=== PATIENT | female | born 1985 | race Asian ===

== ENCOUNTER → 2023-07-25 | Outpatient (CLI) | payer OTHER ==
[2023-07-25 18:22] LABS: HEMATOCRIT 42.7 % (36.0-47.0); HEMOGLOBIN 14.2 g/dl (12.0-15.5); MEAN CORPUSCULAR HEMOGLOBIN 32.1 pg (27.0-33.0); MEAN CORPUSCULAR HGB CONC 33.3 g/dl (32.0-36.5); MEAN CORPUSCULAR VOLUME 96.4 fl (80.0-96.0); PLATELET COUNT, AUTOMATED 319 10^3/uL (150-450); RED BLOOD COUNT 4.43 10^6/uL (4.00-5.40); WHITE BLOOD COUNT 7.7 10^3/uL (4.0-10.0)
[2023-07-25 18:42] LABS: BLOOD UREA NITROGEN 14 MG/DL (9-23); CALCIUM LEVEL 10.2 MG/DL (8.5-10.1); CARBON DIOXIDE LEVEL 26 MMOL/L (20-31); CHLORIDE LEVEL 103 MMOL/L (98-107); CREATININE FOR GFR 0.78 MG/DL (0.55-1.30); GLOMERULAR FILTRATION RATE > 60.0 (>60); GLUCOSE, FASTING 78 MG/DL (60-100); POTASSIUM SERUM 4.4 MMOL/L (3.5-5.1); SODIUM LEVEL 136 MMOL/L (136-145)
== END ==
LOC: M PLALAB 16:18
PROVIDERS: ATTEND Plastic Surgery Surgery of the Hand
DX: D22.39 Melanocytic nevi of other parts of face (principal)

== ENCOUNTER 2023-08-07 06:05 | Day surgery (SDC) | payer OTHER ==
[~2023-08-07] VITALS: Ht 165.1 cm; Wt 87.4 kg
[~2023-08-07 06:05] MED LIST: LEXA1TAB PO; TIRZ2.5P3
[2023-08-07] MEDS ORDERED: LR 1,000 ML IV SCH (06:35)
[2023-08-07] MEDS: LIDOCAINE 2% MDV 20ML VIAL As Ordered ONE (07:13)
[2023-08-07] MEDS ORDERED: ONDANSETRON 4MG 2ML VIAL As Ordered ONE (07:20)
[2023-08-07] MEDS ORDERED: propofoL 200 MG/20 ML VIAL As Ordered ONE (07:20)
[2023-08-07] MEDS ORDERED: LIDOCAINE 2% 100MG/5ML SDV (FOR ANES.) As Ordered ONE (07:20)
[2023-08-07] MEDS ORDERED: dexmedeTOMIDine (4MCG/ML)200MCG/50ML BTL (PRECEDEX) As Ordered ONE (07:21)
[2023-08-07] MEDS ORDERED: MIDAZOLAM INJ 2MG/2ML VIAL As Ordered ONE (07:21)
[2023-08-07] MEDS ORDERED: fentaNYL 100 MCG/2 ML INJECTION As Ordered ONE (07:21)
[2023-08-07] MEDS: ceFAZolin SOD 2 GM in IV 1 EA IV ONE (07:43)
[2023-08-07] MEDS: POVIDONE-IODINE 5% OPHTH PREP SOL 30ML As Ordered ONE (07:45)
[2023-08-07] MEDS: LIDOCAINE 2% W/EPINEPHRINE 20ML VIAL **PRES FREE As Ordered ONE (07:56)
[2023-08-07] MEDS ORDERED: KETAMINE HCL 200MG/20ML VIAL As Ordered ONE (07:59)
[2023-08-07] MEDS ORDERED: ACETAMINOPHEN 1000MG 100ML IV BAG As Ordered ONE (08:08)
[2023-08-07] MEDS: BACITRACIN OINTMENT 30GM TUBE As Ordered ONE (08:10)
[2023-08-07 08:32] VITALS: BP 111/69; TEMP 97.9; O2SAT 98
== END 2023-08-07 08:59 | disposition home or self-care (01) ==
LOC: M SDC 06:05 → EDUNIT# 07:30 → M SDC 08:59
PROVIDERS: ATTEND Plastic Surgery Surgery of the Hand
DX: D22.112 Melanocytic nevi of right lower eyelid, including canthus (principal); D22.39 Melanocytic nevi of other parts of face; F32.A Depression, unspecified; Z88.6 Allergy status to analgesic agent; Z79.899 Other long term (current) drug therapy
CPT/HCPCS: 11440; 11441; 12051; 81025; 88305; J0131; J0690; J1100; J2250; J2405; J3010